=== PATIENT | female | born 1990 | race Caucasian/White ===

== ENCOUNTER 2023-03-04 09:41 | Day surgery (SDC) | payer MEDICAID ==
[~2023-03-04] VITALS: Ht 157.5 cm; Wt 66.2 kg
[2023-03-04] MEDS ORDERED: BUPIVACAINE-MPF/EPI 0.25% 10 ML VIAL INJ ONE (11:25)
[2023-03-04] MEDS ORDERED: fentaNYL citrate 0.05 MG/ML VIAL ONE (11:54)
[2023-03-04] MEDS ORDERED: SEVOFLURANE 250 ML BTL INH ONE (11:54)
[2023-03-04] MEDS ORDERED: PROPOFOL 200 MG/20 ML VIAL IV ONE ×2 (12:35)
[2023-03-04] MEDS ORDERED: ceFAZolin 1,000 MG VIAL ONE ×2 (12:35)
[2023-03-04] MEDS ORDERED: SUCCINYLCHOLINE CHLORIDE 200 MG/10 ML VIAL IVP ONE (12:35)
[2023-03-04] MEDS ORDERED: ATROPINE 0.4 MG/ML VIAL ONE (12:51)
[2023-03-04] MEDS ORDERED: MEPERIDINE 25 MG/ML SYR ONE (13:38)
[2023-03-04] MEDS ORDERED: LABETALOL 20 MG/4 ML VIAL IVP PRN (13:38)
[2023-03-04] MEDS ORDERED: hydrALAZINE 20 MG/ML VIAL IVP PRN (13:38)
[2023-03-04] MEDS ORDERED: METOCLOPRAMIDE 10 MG/2 ML INJ VIAL IVP PRN (13:38)
[2023-03-04] MEDS ORDERED: LACTATED RINGERS 1,000 ML IV SCH (13:40)
[2023-03-04] MEDS: HYDROmorphone 1 MG/ML AMP IVP PRN ×4 (13:45→14:30)
[2023-03-04] MEDS ORDERED: HYDROmorphone PFS 2 MG/ML SYR ONE (13:49)
[2023-03-04] MEDS ORDERED: MEPERIDINE 25 MG/ML SYR IVP ONE (13:55)
[2023-03-04] MEDS ORDERED: diphenhydrAMINE 50 MG/ML VIAL ONE (13:58)
[2023-03-04] MEDS ORDERED: diphenhydrAMINE 50 MG/ML VIAL IVP SCH (14:00)
[2023-03-04] MEDS ORDERED: KETOROLAC 30 MG/ML VIAL IVP SCH (15:03)
[2023-03-04] MEDS ORDERED: KETOROLAC 30 MG/ML VIAL IVP ONE ×2 (15:05→15:10)
== END 2023-03-04 16:35 | disposition home or self-care (01) ==
LOC: MDS 09:41 → MMU 09:42 → MDS 16:35
PROVIDERS: ATTEND Obstetrics & Gynecology
DX: N83.202 Unspecified ovarian cyst, left side (principal); N83.201 Unspecified ovarian cyst, right side
CPT/HCPCS: 58661; 88307; J0330; J0461; J0690; J1170; J1200; J1885; J2175; J2704; J3010; J3490; J7120